=== PATIENT | male | born 1930 | race Caucasian/White ===

== ENCOUNTER 2017-11-30 22:01 | Inpatient (IN) ==
[2017-12-01] MEDS ORDERED: methylPREDNISolone SOD SUC 125 MG/2 ML VIAL IV STA (03:05)
[2017-12-01] MEDS ORDERED: ALBUTEROL/IPRATROPIUM 3 ML NEB RESP TX STA (03:05)
[2017-12-01] MEDS ORDERED: methylPREDNISolone SOD SUC 125 MG/2 ML VIAL ONE (03:12)
[2017-12-01] MEDS ORDERED: ONDANSETRON 4 MG/2 ML VIAL IV PRN (05:05)
[2017-12-01] MEDS ORDERED: ALBUTEROL/IPRATROPIUM 3 ML NEB RESP TX PRN (05:10)
[2017-12-01] MEDS ORDERED: GLUCAGON 1 MG VIAL IM PRN (05:34)
[2017-12-01] MEDS ORDERED: DEXTROSE 50% 25 GM/50 ML VIAL IV PRN (05:34)
[2017-12-01] MEDS: INSULIN LISPRO 100 UNIT/ML SUBCUT SCH ×4 (07:52→22:05)
[2017-12-01 07:55] LABS: Basophils % 0.1 % (0.0-0.8); Hematocrit 46.2 VOL% (42.0-52.0); Hemoglobin 14.9 GM/DL (14.0-18.0); Immature Granulocytes % 0.3 %; Immature Granulocytes Absolute 0.03 #; Lymphocytes # 0.9 10*3/uL (1.4-4.0); Lymphocytes % 9.6 % (21.2-54.2); Mean Corpuscular HGB Conc 32.3 GM/DL (32-36); Mean Corpuscular Hemoglobin 31 PG (27-34); Mean Corpuscular Volume 95.7 FL (87-102); Mean Platelet Volume 11.1 FL (9.6-12.0); Monocytes # 0.1 10*3/uL (0.11-0.8); Monocytes % 0.9 % (1.7-12.7); Neutrophils # 8.2 10*3/uL (1.4-7.4); Neutrophils % 89.1 % (38.7-73.9); Platelet Count 155 T/CUMM (130-400); Red Blood Count 4.83 MC/CUMM (3.8-5.5); Red Cell Distribution Width 13.7 % (9.3-17.3); White Blood Count 9.2 T/CUMM (4-12)
[2017-12-01 08:15] LABS: Band Neutrophils 1 % (0-10); Lymphocytes 9 % (20-55); Segmented Neutrophils 89 % (50-85); Total Cells Counted 100
[2017-12-01 08:16] LABS: Hypochromasia 1+; Platelet Estimate Decreased
[2017-12-01 08:23] LABS: Albumin 2.7 G/DL (3.4-5.0); Bilirubin,Total 0.4 MG/DL (0.2-1.0); Calcium 8.5 MG/DL (8.5-10.1); Potassium 4.3 MMOL/L (3.5-5.1); Total Protein 7.4 G/DL (6.4-8.3)
[2017-12-01] MEDS: ENOXAPARIN 40 MG/0.4 ML SYRINGE SUBCUT SCH (09:13)
[2017-12-01] MEDS ORDERED: LIDOCAINE 2%/EPI 20 ML VIAL ONE (13:11)
[2017-12-01] MEDS ORDERED: SILVER NITRATE STICK 1 EACH TOP ONE (14:19)
[2017-12-01] MEDS ORDERED: SEVOFLURANE 1 UNIT/15 MINUTE INH ONE (14:40)
[2017-12-01] MEDS ORDERED: fentaNYL 100 MCG/2 ML VIAL ONE (14:40)
[2017-12-01] MEDS ORDERED: MIDAZOLAM 2 MG/2 ML VIAL ONE (14:40)
[2017-12-01] MEDS ORDERED: PROPOFOL 200 MG/20 ML VIAL IV ONE (14:40)
[2017-12-02 07:08] LABS: Basophils % 0.1 % (0.0-0.8); Hematocrit 42.6 VOL% (42.0-52.0); Hemoglobin 14.4 GM/DL (14.0-18.0); Immature Granulocytes % 0.4 %; Immature Granulocytes Absolute 0.07 #; Lymphocytes # 2.6 10*3/uL (1.4-4.0); Lymphocytes % 16.4 % (21.2-54.2); Mean Corpuscular HGB Conc 33.8 GM/DL (32-36); Mean Corpuscular Hemoglobin 32 PG (27-34); Mean Corpuscular Volume 94.2 FL (87-102); Mean Platelet Volume 11.7 FL (9.6-12.0); Monocytes # 1.1 10*3/uL (0.11-0.8); Monocytes % 6.8 % (1.7-12.7); Neutrophils # 12.1 10*3/uL (1.4-7.4); Neutrophils % 76.3 % (38.7-73.9); Platelet Count 180 T/CUMM (130-400); Red Blood Count 4.52 MC/CUMM (3.8-5.5); Red Cell Distribution Width 13.9 % (9.3-17.3); White Blood Count 15.9 T/CUMM (4-12)
[2017-12-02] MEDS: ENOXAPARIN 40 MG/0.4 ML SYRINGE SUBCUT SCH (08:51)
[2017-12-02] MEDS: INSULIN LISPRO 100 UNIT/ML SUBCUT SCH ×3 (08:51→16:35)
[2017-12-02 12:09] VITALS: BP 140/77
== END 2017-12-02 17:45 | disposition home or self-care (01) | DRG 206 ==
LOC: N.ED 22:01 → N.EDINP 12-01 05:05 → N.5E 12-01 05:52
PROVIDERS: ADMIT Internal Medicine Nephrology; ATTEND Internal Medicine Nephrology

== ENCOUNTER 2017-12-05 11:30 | Inpatient (IN) ==
[2017-12-05 12:40] LABS: Basophils % 0.1 % (0.0-0.8); Hemoglobin 14.7 GM/DL (14.0-18.0); Immature Granulocytes % 0.6 %; Immature Granulocytes Absolute 0.14 #; Lymphocytes # 1.3 10*3/uL (1.4-4.0); Lymphocytes % 5.9 % (21.2-54.2); Mean Corpuscular HGB Conc 32.7 GM/DL (32-36); Mean Corpuscular Hemoglobin 31 PG (27-34); Mean Corpuscular Volume 95.5 FL (87-102); Mean Platelet Volume 10.9 FL (9.6-12.0); Monocytes # 1.1 10*3/uL (0.11-0.8); Monocytes % 5.1 % (1.7-12.7); Neutrophils # 19.4 10*3/uL (1.4-7.4); Neutrophils % 88.3 % (38.7-73.9); Platelet Count 204 T/CUMM (130-400); Red Blood Count 4.71 MC/CUMM (3.8-5.5); Red Cell Distribution Width 13.7 % (9.3-17.3); White Blood Count 21.9 T/CUMM (4-12)
[2017-12-05] MEDS ORDERED: LEVOFLOXACIN INJ 750 MG in PREMIX 1 EACH IV STA (12:43)
[2017-12-05 12:48] LABS: PT Patient Result 10.9 SECS; Partial Thromboplastin Time 26.1 SECS (0-40)
[2017-12-05 13:07] LABS: Band Neutrophils 3 % (0-10); Lymphocytes 15 % (20-55); Segmented Neutrophils 81 % (50-85); Total Cells Counted 100
[2017-12-05 13:08] LABS: Platelet Estimate Normal
[2017-12-05 13:18] LABS: Albumin 2.6 G/DL (3.4-5.0); Bilirubin,Total 0.6 MG/DL (0.2-1.0); Calcium 8.3 MG/DL (8.5-10.1); Osmolality,Calculated 299.8 MOS/KG (273-304); Potassium 4.3 MMOL/L (3.5-5.1); Total Protein 7.2 G/DL (6.4-8.3)
[2017-12-05] MEDS ORDERED: diphenhydrAMINE CAP 25 MG CAPSULE PO PRN (15:20)
[2017-12-05] MEDS ORDERED: DOCUSATE SODIUM 100 MG CAPSULE PO PRN (15:20)
[2017-12-05] MEDS ORDERED: guaiFENesin/DM ER 600-30 MG TABLET PO PRN (15:20)
[2017-12-05] MEDS ORDERED: ONDANSETRON 4 MG/2 ML VIAL IV PRN (15:20)
[2017-12-05] MEDS ORDERED: ACETAMINOPHEN 325 MG TABLET PO PRN ×2 (15:20)
[2017-12-05] MEDS: MORPHINE 10 MG/1 ML VIAL IV PRN ×2 (18:31→22:59)
[2017-12-05] MEDS: SODIUM CHLORIDE 0.9% 1,000 ML IV SCH (18:31)
[2017-12-05] MEDS: PANTOPRAZOLE 40 MG TABLET PO SCH (18:37)
[2017-12-05] MEDS: MUPIROCIN 2% OINT 22 GM TUBE TOP SCH (21:50)
[2017-12-05] MEDS: ENOXAPARIN 30 MG/0.3 ML SYRINGE SUBCUT SCH (21:50)
[2017-12-06] MEDS: CEFTAROLINE 400 MG in SODIUM CHLORIDE 0.9% 100 ML IV SCH ×3 (00:02→23:00)
[2017-12-06] MEDS: SODIUM CHLORIDE 0.9% 1,000 ML IV SCH (00:02)
[2017-12-06 05:39] LABS: Basophils % 0.1 % (0.0-0.8); Hematocrit 44.3 VOL% (42.0-52.0); Hemoglobin 14.7 GM/DL (14.0-18.0); Immature Granulocytes % 0.8 %; Immature Granulocytes Absolute 0.17 #; Lymphocytes # 1.4 10*3/uL (1.4-4.0); Lymphocytes % 6.6 % (21.2-54.2); Mean Corpuscular HGB Conc 33.2 GM/DL (32-36); Mean Corpuscular Hemoglobin 31 PG (27-34); Mean Corpuscular Volume 94.3 FL (87-102); Mean Platelet Volume 11.7 FL (9.6-12.0); Monocytes # 1.1 10*3/uL (0.11-0.8); Monocytes % 5.3 % (1.7-12.7); Neutrophils # 17.9 10*3/uL (1.4-7.4); Neutrophils % 87.2 % (38.7-73.9); Platelet Count 196 T/CUMM (130-400); Red Cell Distribution Width 13.8 % (9.3-17.3); White Blood Count 20.5 T/CUMM (4-12)
[2017-12-06 06:02] LABS: Calcium 8.2 MG/DL (8.5-10.1); Osmolality,Calculated 299.6 MOS/KG (273-304); Potassium 4.2 MMOL/L (3.5-5.1)
[2017-12-06 06:24] LABS: Band Neutrophils 1 % (0-10); Giant Platelets Few; Hypochromasia 1+; Lymphocytes 11 % (20-55); Platelet Estimate Adequate; Segmented Neutrophils 86 % (50-85); Total Cells Counted 100
[2017-12-06] MEDS: PANTOPRAZOLE 40 MG TABLET PO SCH (09:22)
[2017-12-06] MEDS: MUPIROCIN 2% OINT 22 GM TUBE TOP SCH ×3 (09:27→21:00)
[2017-12-06] MEDS ORDERED: PRASTERONE 50 MG PO SCH (10:30)
[2017-12-06] MEDS ORDERED: NON-FORMULARY MEDICATION (Mirabegron [Myrbetriq] 25 MG) PO SCH (10:30)
[2017-12-06] MEDS: DONEPEZIL 10 MG TABLET PO SCH (16:23)
[2017-12-06] MEDS: CITALOPRAM 20 MG TABLET PO SCH (16:24)
[2017-12-06] MEDS: LORATADINE 10 MG TABLET PO SCH (16:24)
[2017-12-06] MEDS: ANASTROZOLE 1 MG TABLET PO SCH (16:24)
[2017-12-06] MEDS: ASPIRIN 325 MG TABLET PO SCH (16:24)
[2017-12-06] MEDS: MEMANTINE 10 MG TABLET PO SCH (17:24)
[2017-12-06] MEDS: TAMSULOSIN 0.4 MG CAPSULE PO SCH (17:24)
[2017-12-06] MEDS: FLUTICASONE 50 MCG NASAL SPRAY 16 GM BOTTLE BOTH NARES SCH (17:24)
[2017-12-06] MEDS: amLODIPine 5 MG TABLET PO SCH (17:24)
[2017-12-06] MEDS: POLYETHYLENE GLYCOL POWDER 17 GM PACK PO SCH (17:24)
[2017-12-06] MEDS: ATENOLOL 50 MG TABLET PO SCH (17:25)
[2017-12-06] MEDS: FINASTERIDE 5 MG TABLET PO SCH (17:25)
[2017-12-06] MEDS: LISINOPRIL 20 MG TABLET PO SCH (17:25)
[2017-12-06] MEDS: PRAVASTATIN 40 MG TABLET PO SCH (17:25)
[2017-12-06] MEDS: ALLOPURINOL 100 MG TABLET PO SCH (17:25)
[2017-12-06] MEDS: ARFORMOTEROL 15 MCG/2 ML NEB RESP TX SCH (19:20)
[2017-12-06] MEDS: SODIUM CHLORIDE 0.45% 1,000 ML IV SCH ×2 (20:00→22:00)
[2017-12-07] MEDS: ESCITALOPRAM 10 MG TABLET PO SCH ×2 (00:22→21:32)
[2017-12-07] MEDS: ENOXAPARIN 30 MG/0.3 ML SYRINGE SUBCUT SCH (00:22)
[2017-12-07] MEDS: MEMANTINE 10 MG TABLET PO SCH ×3 (00:23→21:32)
[2017-12-07] MEDS: SODIUM CHLORIDE 0.9% 1,000 ML IV SCH (03:36)
[2017-12-07] MEDS ORDERED: MIDAZOLAM 2 MG/2 ML VIAL ONE (07:10)
[2017-12-07] MEDS: ARFORMOTEROL 15 MCG/2 ML NEB RESP TX SCH ×2 (07:26→19:55)
[2017-12-07] MEDS ORDERED: MIDAZOLAM 2 MG/2 ML VIAL IV ONE (07:30)
[2017-12-07] MEDS ORDERED: LIDOCAINE 2% 20 ML VIAL RESP TX ONE (07:30)
[2017-12-07] MEDS ORDERED: LIDOCAINE 1% 20 ML VIAL MISC INJ ONE (07:30)
[2017-12-07] MEDS: SODIUM CHLORIDE 0.45% 1,000 ML IV SCH ×3 (09:49→21:50)
[2017-12-07] MEDS: CEFTAROLINE 400 MG in SODIUM CHLORIDE 0.9% 100 ML IV SCH ×2 (11:00→22:30)
[2017-12-07] MEDS: FLUTICASONE 50 MCG NASAL SPRAY 16 GM BOTTLE BOTH NARES SCH (11:12)
[2017-12-07] MEDS: MUPIROCIN 2% OINT 22 GM TUBE TOP SCH ×3 (11:19→21:32)
[2017-12-07] MEDS: PANTOPRAZOLE 40 MG TABLET PO SCH (12:03)
[2017-12-07] MEDS: LORATADINE 10 MG TABLET PO SCH (12:03)
[2017-12-07] MEDS: ASPIRIN 325 MG TABLET PO SCH (12:03)
[2017-12-07] MEDS: ALLOPURINOL 100 MG TABLET PO SCH (12:03)
[2017-12-07] MEDS: CITALOPRAM 20 MG TABLET PO SCH (12:03)
[2017-12-07] MEDS: ATENOLOL 50 MG TABLET PO SCH (12:03)
[2017-12-07] MEDS: DONEPEZIL 10 MG TABLET PO SCH (12:03)
[2017-12-07] MEDS: POLYETHYLENE GLYCOL POWDER 17 GM PACK PO SCH (12:03)
[2017-12-07] MEDS: LISINOPRIL 20 MG TABLET PO SCH (12:03)
[2017-12-07] MEDS: ANASTROZOLE 1 MG TABLET PO SCH (12:03)
[2017-12-07] MEDS: TAMSULOSIN 0.4 MG CAPSULE PO SCH (12:03)
[2017-12-07] MEDS: FINASTERIDE 5 MG TABLET PO SCH (12:03)
[2017-12-07] MEDS: PRAVASTATIN 40 MG TABLET PO SCH (12:03)
[2017-12-07] MEDS: amLODIPine 5 MG TABLET PO SCH (12:04)
[2017-12-07] MEDS: ENOXAPARIN 40 MG/0.4 ML SYRINGE SUBCUT SCH (21:32)
[2017-12-07] MEDS: MORPHINE 10 MG/1 ML VIAL IV PRN (21:34)
[2017-12-08] MEDS: SODIUM CHLORIDE 0.45% 1,000 ML IV SCH ×2 (05:04→13:30)
[2017-12-08] MEDS: ARFORMOTEROL 15 MCG/2 ML NEB RESP TX SCH ×2 (07:08→19:22)
[2017-12-08 07:54] LABS: Basophils % 0.2 % (0.0-0.8); Eosinophils # 0.1 10*3/uL (0.0-0.87); Eosinophils % 0.7 % (0.00-10.9); Hematocrit 40.4 VOL% (42.0-52.0); Immature Granulocytes % 1.2 %; Immature Granulocytes Absolute 0.22 #; Lymphocytes # 1.5 10*3/uL (1.4-4.0); Lymphocytes % 8.7 % (21.2-54.2); Mean Corpuscular HGB Conc 32.2 GM/DL (32-36); Mean Corpuscular Hemoglobin 31 PG (27-34); Mean Corpuscular Volume 97.3 FL (87-102); Monocytes # 0.9 10*3/uL (0.11-0.8); Monocytes % 5.2 % (1.7-12.7); Neutrophils # 14.8 10*3/uL (1.4-7.4); Platelet Count 189 T/CUMM (130-400); Red Blood Count 4.15 MC/CUMM (3.8-5.5); Red Cell Distribution Width 13.8 % (9.3-17.3); White Blood Count 17.6 T/CUMM (4-12)
[2017-12-08 08:32] LABS: Magnesium 2.2 MG/DL (1.8-2.4); Osmolality,Calculated 297.8 MOS/KG (273-304); Potassium 3.8 MMOL/L (3.5-5.1)
[2017-12-08] MEDS: DONEPEZIL 10 MG TABLET PO SCH (09:32)
[2017-12-08] MEDS: LORATADINE 10 MG TABLET PO SCH (09:33)
[2017-12-08] MEDS: ANASTROZOLE 1 MG TABLET PO SCH (09:33)
[2017-12-08] MEDS: TAMSULOSIN 0.4 MG CAPSULE PO SCH (09:33)
[2017-12-08] MEDS: ASPIRIN 325 MG TABLET PO SCH (09:33)
[2017-12-08] MEDS: CITALOPRAM 20 MG TABLET PO SCH (09:33)
[2017-12-08] MEDS: MEMANTINE 10 MG TABLET PO SCH ×2 (09:34→20:31)
[2017-12-08] MEDS: LISINOPRIL 20 MG TABLET PO SCH (09:34)
[2017-12-08] MEDS: PRAVASTATIN 40 MG TABLET PO SCH (09:34)
[2017-12-08] MEDS: amLODIPine 5 MG TABLET PO SCH (09:34)
[2017-12-08] MEDS: ATENOLOL 50 MG TABLET PO SCH (09:35)
[2017-12-08] MEDS: FINASTERIDE 5 MG TABLET PO SCH (09:35)
[2017-12-08] MEDS: ALLOPURINOL 100 MG TABLET PO SCH (09:35)
[2017-12-08] MEDS: PANTOPRAZOLE 40 MG TABLET PO SCH (09:35)
[2017-12-08] MEDS: FLUTICASONE 50 MCG NASAL SPRAY 16 GM BOTTLE BOTH NARES SCH (09:36)
[2017-12-08] MEDS: MUPIROCIN 2% OINT 22 GM TUBE TOP SCH ×3 (09:36→20:31)
[2017-12-08] MEDS: CEFTAROLINE 400 MG in SODIUM CHLORIDE 0.9% 100 ML IV SCH ×2 (11:34→23:00)
[2017-12-08] MEDS: POLYETHYLENE GLYCOL POWDER 17 GM PACK PO SCH (12:06)
[2017-12-08] MEDS: ESCITALOPRAM 10 MG TABLET PO SCH (20:30)
[2017-12-08] MEDS: ENOXAPARIN 40 MG/0.4 ML SYRINGE SUBCUT SCH (20:31)
[2017-12-09] MEDS: SODIUM CHLORIDE 0.45% 1,000 ML IV SCH ×3 (00:05→17:03)
[2017-12-09] MEDS: MORPHINE 10 MG/1 ML VIAL IV PRN (01:17)
[2017-12-09] MEDS: ARFORMOTEROL 15 MCG/2 ML NEB RESP TX SCH ×2 (07:16→19:57)
[2017-12-09] MEDS: DONEPEZIL 10 MG TABLET PO SCH (09:17)
[2017-12-09] MEDS: ASPIRIN 325 MG TABLET PO SCH (09:17)
[2017-12-09] MEDS: ANASTROZOLE 1 MG TABLET PO SCH (09:17)
[2017-12-09] MEDS: CITALOPRAM 20 MG TABLET PO SCH (09:18)
[2017-12-09] MEDS: LORATADINE 10 MG TABLET PO SCH (09:18)
[2017-12-09] MEDS: FLUTICASONE 50 MCG NASAL SPRAY 16 GM BOTTLE BOTH NARES SCH (09:18)
[2017-12-09] MEDS: TAMSULOSIN 0.4 MG CAPSULE PO SCH (09:18)
[2017-12-09] MEDS: MEMANTINE 10 MG TABLET PO SCH ×2 (09:19→21:34)
[2017-12-09] MEDS: MUPIROCIN 2% OINT 22 GM TUBE TOP SCH ×3 (09:19→21:35)
[2017-12-09] MEDS: amLODIPine 5 MG TABLET PO SCH (09:19)
[2017-12-09] MEDS: PRAVASTATIN 40 MG TABLET PO SCH (09:20)
[2017-12-09] MEDS: ATENOLOL 50 MG TABLET PO SCH (09:20)
[2017-12-09] MEDS: LISINOPRIL 20 MG TABLET PO SCH (09:20)
[2017-12-09] MEDS: ALLOPURINOL 100 MG TABLET PO SCH (09:20)
[2017-12-09] MEDS: FINASTERIDE 5 MG TABLET PO SCH (09:20)
[2017-12-09] MEDS: PANTOPRAZOLE 40 MG TABLET PO SCH (09:20)
[2017-12-09] MEDS ORDERED: LORazepam 0.5 MG TABLET PO PRN (10:01)
[2017-12-09] MEDS: CEFTAROLINE 400 MG in SODIUM CHLORIDE 0.9% 100 ML IV SCH ×2 (10:48→22:52)
[2017-12-09] MEDS ORDERED: LORazepam 1 MG TABLET PO PRN (11:28)
[2017-12-09] MEDS: POLYETHYLENE GLYCOL POWDER 17 GM PACK PO SCH (12:13)
[2017-12-09] MEDS: ESCITALOPRAM 10 MG TABLET PO SCH (21:34)
[2017-12-09] MEDS: ENOXAPARIN 40 MG/0.4 ML SYRINGE SUBCUT SCH (21:34)
[2017-12-10] MEDS: SODIUM CHLORIDE 0.45% 1,000 ML IV SCH ×2 (01:35→10:33)
[2017-12-10 06:20] LABS: Basophils % 0.2 % (0.0-0.8); Eosinophils # 0.1 10*3/uL (0.0-0.87); Eosinophils % 0.8 % (0.00-10.9); Hematocrit 39.2 VOL% (42.0-52.0); Hemoglobin 12.9 GM/DL (14.0-18.0); Immature Granulocytes % 0.7 %; Immature Granulocytes Absolute 0.12 #; Lymphocytes # 1.3 10*3/uL (1.4-4.0); Lymphocytes % 7.5 % (21.2-54.2); Mean Corpuscular HGB Conc 32.9 GM/DL (32-36); Mean Corpuscular Hemoglobin 31 PG (27-34); Mean Corpuscular Volume 94.5 FL (87-102); Mean Platelet Volume 11.3 FL (9.6-12.0); Monocytes # 0.9 10*3/uL (0.11-0.8); Monocytes % 5.2 % (1.7-12.7); Neutrophils # 14.5 10*3/uL (1.4-7.4); Neutrophils % 85.6 % (38.7-73.9); Platelet Count 203 T/CUMM (130-400); Red Blood Count 4.15 MC/CUMM (3.8-5.5); Red Cell Distribution Width 13.5 % (9.3-17.3); White Blood Count 16.9 T/CUMM (4-12)
[2017-12-10 06:54] LABS: Calcium 7.7 MG/DL (8.5-10.1); Magnesium 2.1 MG/DL (1.8-2.4); Osmolality,Calculated 284.7 MOS/KG (273-304); Potassium 3.9 MMOL/L (3.5-5.1)
[2017-12-10] MEDS: ARFORMOTEROL 15 MCG/2 ML NEB RESP TX SCH ×2 (07:25→20:05)
[2017-12-10] MEDS: TAMSULOSIN 0.4 MG CAPSULE PO SCH (08:40)
[2017-12-10] MEDS: amLODIPine 5 MG TABLET PO SCH (08:40)
[2017-12-10] MEDS: MUPIROCIN 2% OINT 22 GM TUBE TOP SCH ×3 (08:40→21:35)
[2017-12-10] MEDS: CITALOPRAM 20 MG TABLET PO SCH (08:40)
[2017-12-10] MEDS: FLUTICASONE 50 MCG NASAL SPRAY 16 GM BOTTLE BOTH NARES SCH (08:40)
[2017-12-10] MEDS: ANASTROZOLE 1 MG TABLET PO SCH (08:40)
[2017-12-10] MEDS: POLYETHYLENE GLYCOL POWDER 17 GM PACK PO SCH (08:40)
[2017-12-10] MEDS: DONEPEZIL 10 MG TABLET PO SCH (08:40)
[2017-12-10] MEDS: LORATADINE 10 MG TABLET PO SCH (08:40)
[2017-12-10] MEDS: ASPIRIN 325 MG TABLET PO SCH (08:40)
[2017-12-10] MEDS: MEMANTINE 10 MG TABLET PO SCH ×2 (08:40→21:36)
[2017-12-10] MEDS: PANTOPRAZOLE 40 MG TABLET PO SCH (08:41)
[2017-12-10] MEDS: PRAVASTATIN 40 MG TABLET PO SCH (08:41)
[2017-12-10] MEDS: ALLOPURINOL 100 MG TABLET PO SCH (08:41)
[2017-12-10] MEDS: ATENOLOL 50 MG TABLET PO SCH (08:41)
[2017-12-10] MEDS: FINASTERIDE 5 MG TABLET PO SCH (08:41)
[2017-12-10] MEDS: LISINOPRIL 20 MG TABLET PO SCH (08:41)
[2017-12-10] MEDS ORDERED: FUROSEMIDE 40 MG/4 ML VIAL IV ONE (10:04)
[2017-12-10] MEDS: CEFTAROLINE 400 MG in SODIUM CHLORIDE 0.9% 100 ML IV SCH ×2 (11:22→22:57)
[2017-12-10] MEDS: FLUCONAZOLE 100 MG TABLET PO SCH (13:01)
[2017-12-10] MEDS: ESCITALOPRAM 10 MG TABLET PO SCH (21:35)
[2017-12-10] MEDS: ENOXAPARIN 40 MG/0.4 ML SYRINGE SUBCUT SCH (21:36)
[2017-12-11 05:24] LABS: Basophils # 0.1 10*3/uL (0.0-0.2); Basophils % 0.3 % (0.0-0.8); Eosinophils # 0.2 10*3/uL (0.0-0.87); Eosinophils % 0.9 % (0.00-10.9); Hematocrit 39.4 VOL% (42.0-52.0); Hemoglobin 12.8 GM/DL (14.0-18.0); Immature Granulocytes % 0.9 %; Immature Granulocytes Absolute 0.15 #; Lymphocytes # 1.1 10*3/uL (1.4-4.0); Lymphocytes % 6.5 % (21.2-54.2); Mean Corpuscular HGB Conc 32.5 GM/DL (32-36); Mean Corpuscular Hemoglobin 31 PG (27-34); Mean Corpuscular Volume 94.9 FL (87-102); Mean Platelet Volume 11.8 FL (9.6-12.0); Monocytes # 0.8 10*3/uL (0.11-0.8); Monocytes % 4.6 % (1.7-12.7); Neutrophils # 15.2 10*3/uL (1.4-7.4); Neutrophils % 86.8 % (38.7-73.9); Platelet Count 225 T/CUMM (130-400); Red Blood Count 4.15 MC/CUMM (3.8-5.5); Red Cell Distribution Width 13.4 % (9.3-17.3); White Blood Count 17.5 T/CUMM (4-12)
[2017-12-11 05:59] LABS: Calcium 8.4 MG/DL (8.5-10.1); Magnesium 2.3 MG/DL (1.8-2.4); Potassium 3.7 MMOL/L (3.5-5.1)
[2017-12-11] MEDS: ARFORMOTEROL 15 MCG/2 ML NEB RESP TX SCH (07:48)
[2017-12-11] MEDS ORDERED: VORICONAZOLE 200 MG TABLET PO SCH (09:30)
[2017-12-11] MEDS: POLYETHYLENE GLYCOL POWDER 17 GM PACK PO SCH (10:09)
[2017-12-11] MEDS: FLUTICASONE 50 MCG NASAL SPRAY 16 GM BOTTLE BOTH NARES SCH (10:09)
[2017-12-11] MEDS: ATENOLOL 50 MG TABLET PO SCH (10:10)
[2017-12-11] MEDS: MEMANTINE 10 MG TABLET PO SCH (10:10)
[2017-12-11] MEDS: ASPIRIN 325 MG TABLET PO SCH (10:10)
[2017-12-11] MEDS: MUPIROCIN 2% OINT 22 GM TUBE TOP SCH (10:10)
[2017-12-11] MEDS: ALLOPURINOL 100 MG TABLET PO SCH (10:10)
[2017-12-11] MEDS: TAMSULOSIN 0.4 MG CAPSULE PO SCH (10:10)
[2017-12-11] MEDS: PRAVASTATIN 40 MG TABLET PO SCH (10:10)
[2017-12-11] MEDS: CITALOPRAM 20 MG TABLET PO SCH (10:10)
[2017-12-11] MEDS: LORATADINE 10 MG TABLET PO SCH (10:10)
[2017-12-11] MEDS: LISINOPRIL 20 MG TABLET PO SCH (10:10)
[2017-12-11] MEDS: amLODIPine 5 MG TABLET PO SCH (10:11)
[2017-12-11] MEDS: FINASTERIDE 5 MG TABLET PO SCH (10:11)
[2017-12-11] MEDS: DONEPEZIL 10 MG TABLET PO SCH (10:11)
[2017-12-11] MEDS: ANASTROZOLE 1 MG TABLET PO SCH (10:11)
[2017-12-11] MEDS: PANTOPRAZOLE 40 MG TABLET PO SCH (10:11)
[2017-12-11 11:00] VITALS: BP 147/67
[2017-12-11] MEDS: CEFTAROLINE 400 MG in SODIUM CHLORIDE 0.9% 100 ML IV SCH (12:14)
[2017-12-11] MEDS: FLUCONAZOLE 100 MG TABLET PO SCH (12:15)
[2017-12-11] MEDS ORDERED: ENOXAPARIN 30 MG/0.3 ML SYRINGE SUBCUT SCH (21:00)
[2017-12-13] MEDS ORDERED: TESTOSTERONE CYPIONATE 200 MG/ML VIAL IM SCH (09:00)
== END 2017-12-11 13:30 | disposition swing bed (61) | DRG 200 ==
LOC: EDUNIT# → EDBD → N.ED 11:30 → N.EDINP 12:52 → SUATTDRO 12:52 → N.3E 17:09
PROVIDERS: ADMIT Internal Medicine; ATTEND Internal Medicine

== ENCOUNTER 2018-01-05 12:59 | Inpatient (IN) ==
[2018-01-05] MEDS ORDERED: ONDANSETRON 4 MG/2 ML VIAL IV PRN (16:00)
[2018-01-05] MEDS ORDERED: DEXT 5% NACL 0.45% KCL 20 MEQ 20 MEQ/1,000 ML BAG IV SCH (16:00)
[2018-01-05 17:04] LABS: Basophils # 0.1 10*3/uL (0.0-0.2); Basophils % 0.6 % (0.0-0.8); Eosinophils # 0.3 10*3/uL (0.0-0.87); Eosinophils % 2.2 % (0.00-10.9); Hematocrit 29.2 VOL% (42.0-52.0); Immature Granulocytes Absolute 0.12 #; Lymphocytes # 1.2 10*3/uL (1.4-4.0); Lymphocytes % 10.3 % (21.2-54.2); Mean Corpuscular HGB Conc 30.8 GM/DL (32-36); Mean Corpuscular Hemoglobin 30 PG (27-34); Mean Platelet Volume 10.8 FL (9.6-12.0); Monocytes # 0.6 10*3/uL (0.11-0.8); NRBC # 0.05 10*3/uL; Neutrophils # 9.6 10*3/uL (1.4-7.4); Neutrophils % 80.9 % (38.7-73.9); Platelet Count 235 T/CUMM (130-400); Red Blood Count 2.98 MC/CUMM (3.8-5.5); Red Cell Distribution Width 14.6 % (9.3-17.3); White Blood Count 11.9 T/CUMM (4-12)
[2018-01-05 17:24] LABS: Alanine Aminotransferase 179 U/L (16-61); Albumin 1.8 G/DL (3.4-5.0); Alkaline Phosphatase 127 U/L (45-117); Aspartate Amino Transferase 335 U/L (0-37); Bilirubin,Total < 0.39 MG/DL (0.2-1.0); Blood Urea Nitrogen 44 MG/DL (7-18); Calcium 7.9 MG/DL (8.5-10.1); Glucose 121 MG/DL (74-106); Osmolality,Calculated 297.8 MOS/KG (273-304); Potassium 4.5 MMOL/L (3.5-5.1); Sodium 144 MMOL/L (136-145); Total Protein 6.6 G/DL (6.4-8.3)
[2018-01-05] MEDS ORDERED: VANCOMYCIN INJ 1,250 MG in SODIUM CHLORIDE 0.9% 250 ML IV PRN (17:33)
[2018-01-05] MEDS ORDERED: VANCOMYCIN INJ 1,250 MG in SODIUM CHLORIDE 0.9% 250 ML IV ONE (18:00)
[2018-01-05] MEDS: LEVOFLOXACIN INJ 500 MG in PREMIX 1 EACH IV SCH (18:21)
[2018-01-05] MEDS: SODIUM CHLORIDE 0.9% 1,000 ML IV SCH (18:22)
[2018-01-05 19:02] LABS: Apearance,Urine CLEAR (Clear); Bacteria,Urine Occasional /HPF (Few); Bilirubin,Urine Negative (Negative); Blood, Urine Moderate mg/dL (Negative); Glucose,Urine (UA) Negative (Negative); Hyaline Casts,Urine 1 /LPF (0-3); Ketones,Urine Negative (Negative); Mucus,Urine Occasional /LPF (Occasional); Nitrite,Urine Negative (Negative); Protein,Urine 100 MG/DL; RBC,Urine 6 /HPF (0-4); Urine Color Yellow (Yellow); Urine Urobilinogen < 2.0 EU/DL (0.2-1.0); WBC,Urine <1 /HPF (0-6)
[2018-01-05] MEDS ORDERED: VORICONAZOLE IV SCH (20:00)
[2018-01-05] MEDS ORDERED: SODIUM CHLORIDE 0.9% IV SCH (20:00)
[2018-01-05] MEDS: ALBUTEROL/IPRATROPIUM 3 ML NEB RESP TX SCH ×2 (20:35→23:33)
[2018-01-05] MEDS: ARFORMOTEROL 15 MCG/2 ML NEB RESP TX SCH (20:35)
[2018-01-05] MEDS: ENOXAPARIN 30 MG/0.3 ML SYRINGE SUBCUT SCH (20:49)
[2018-01-05] MEDS: VORICONAZOLE INJ 400 MG in SODIUM CHLORIDE 0.9% 100 ML IV SCH (20:49)
[2018-01-05] MEDS: MUPIROCIN 2% OINT 22 GM TUBE TOP SCH (20:49)
[2018-01-05] MEDS: MEMANTINE 10 MG TABLET PO SCH (20:49)
[2018-01-06] MEDS: ALBUTEROL/IPRATROPIUM 3 ML NEB RESP TX SCH ×6 (03:04→23:57)
[2018-01-06 05:40] LABS: Basophils % 0.4 % (0.0-0.8); Eosinophils % 0.7 % (0.00-10.9); Hematocrit 27.5 VOL% (42.0-52.0); Hemoglobin 8.9 GM/DL (14.0-18.0); Immature Granulocytes % 1.1 %; Lymphocytes # 1.4 10*3/uL (1.4-4.0); Lymphocytes % 12.5 % (21.2-54.2); Mean Corpuscular HGB Conc 32.4 GM/DL (32-36); Mean Corpuscular Hemoglobin 31 PG (27-34); Mean Corpuscular Volume 94.8 FL (87-102); Monocytes % 5.6 % (1.7-12.7); Neutrophils # 9.1 10*3/uL (1.4-7.4); Neutrophils % 79.7 % (38.7-73.9); Platelet Count 227 T/CUMM (130-400); Red Cell Distribution Width 14.6 % (9.3-17.3); White Blood Count 11.4 T/CUMM (4-12)
[2018-01-06 05:41] LABS: Basophils # 0.1 10*3/uL (0.0-0.2); Eosinophils # 0.1 10*3/uL (0.0-0.87); Immature Granulocytes Absolute 0.12 #; Monocytes # 0.6 10*3/uL (0.11-0.8); NRBC # 0.06 10*3/uL
[2018-01-06 06:16] LABS: Calcium 7.8 MG/DL (8.5-10.1); Osmolality,Calculated 302.4 MOS/KG (273-304); Potassium 4.2 MMOL/L (3.5-5.1)
[2018-01-06] MEDS: ARFORMOTEROL 15 MCG/2 ML NEB RESP TX SCH ×2 (07:56→20:49)
[2018-01-06] MEDS ORDERED: NON-FORMULARY MEDICATION (Mirabegron [Myrbetriq] 50 MG) PO SCH (09:00)
[2018-01-06] MEDS: VORICONAZOLE INJ 400 MG in SODIUM CHLORIDE 0.9% 100 ML IV SCH ×2 (09:10→20:21)
[2018-01-06] MEDS: DONEPEZIL 10 MG TABLET PO SCH (09:11)
[2018-01-06] MEDS: ALLOPURINOL 100 MG TABLET PO SCH (09:11)
[2018-01-06] MEDS: LORATADINE 10 MG TABLET PO SCH (09:11)
[2018-01-06] MEDS: ASPIRIN 325 MG TABLET PO SCH (09:11)
[2018-01-06] MEDS: ATENOLOL 50 MG TABLET PO SCH (09:12)
[2018-01-06] MEDS: TAMSULOSIN 0.4 MG CAPSULE PO SCH (09:12)
[2018-01-06] MEDS: FINASTERIDE 5 MG TABLET PO SCH (09:12)
[2018-01-06] MEDS: MEMANTINE 10 MG TABLET PO SCH ×2 (09:15→21:43)
[2018-01-06] MEDS: FLUTICASONE 50 MCG NASAL SPRAY 16 GM BOTTLE BOTH NARES SCH (09:16)
[2018-01-06] MEDS: MUPIROCIN 2% OINT 22 GM TUBE TOP SCH ×2 (09:16→21:42)
[2018-01-06] MEDS: MAGNESIUM OXIDE 400 MG TABLET PO SCH (09:16)
[2018-01-06] MEDS: SODIUM CHLORIDE 0.9% 1,000 ML IV SCH (12:10)
[2018-01-06] MEDS: POLYETHYLENE GLYCOL POWDER 17 GM PACK PO SCH (12:10)
[2018-01-06 15:27] LABS: ABG Base Excess 2.7 MMOL/L (-2.5-2.5); ABG HCO3 26.3 MMOL/L (20-26); ABG Oxygen Saturation 69.5 % (95-100); ABG PCO2 43.5 MM HG (35-48); ABG PH 7.411 (7.35-7.45); ABG TCO2 25.3 MMOL/L (23-27)
[2018-01-06] MEDS ORDERED: FUROSEMIDE 40 MG/4 ML VIAL IV ONE (15:27)
[2018-01-06 15:48] LABS: ABG PO2 39.8 MM HG (80-95)
[2018-01-06] MEDS: methylPREDNISolone SOD SUC 40 MG/1 ML VIAL IV SCH ×2 (15:51→21:42)
[2018-01-06] MEDS: LEVOFLOXACIN INJ 500 MG in PREMIX 1 EACH IV SCH (16:02)
[2018-01-06] MEDS ORDERED: ACETAMINOPHEN 325 MG TABLET PO PRN (17:21)
[2018-01-06] MEDS: MORPHINE 2 MG/1 ML SYRINGE IV PRN ×2 (17:59→19:58)
[2018-01-06] MEDS ORDERED: VANCOMYCIN INJ 1,250 MG in SODIUM CHLORIDE 0.9% 250 ML IV ONE (21:00)
[2018-01-06] MEDS: ENOXAPARIN 30 MG/0.3 ML SYRINGE SUBCUT SCH (21:43)
[2018-01-07] MEDS: methylPREDNISolone SOD SUC 40 MG/1 ML VIAL IV SCH ×4 (03:15→20:59)
[2018-01-07] MEDS: ALBUTEROL/IPRATROPIUM 3 ML NEB RESP TX SCH ×4 (03:57→14:00)
[2018-01-07 05:03] LABS: Basophils % 0.2 % (0.0-0.8); Hematocrit 31.3 VOL% (42.0-52.0); Hemoglobin 9.9 GM/DL (14.0-18.0); Immature Granulocytes % 0.9 %; Immature Granulocytes Absolute 0.11 #; Lymphocytes # 1.1 10*3/uL (1.4-4.0); Lymphocytes % 9.3 % (21.2-54.2); Mean Corpuscular HGB Conc 31.6 GM/DL (32-36); Mean Corpuscular Hemoglobin 31 PG (27-34); Mean Corpuscular Volume 97.5 FL (87-102); Mean Platelet Volume 11.3 FL (9.6-12.0); Monocytes # 0.2 10*3/uL (0.11-0.8); Monocytes % 1.8 % (1.7-12.7); Neutrophils # 10.6 10*3/uL (1.4-7.4); Neutrophils % 87.8 % (38.7-73.9); Platelet Count 204 T/CUMM (130-400); Red Blood Count 3.21 MC/CUMM (3.8-5.5); Red Cell Distribution Width 14.5 % (9.3-17.3)
[2018-01-07 05:27] LABS: Calcium 8.2 MG/DL (8.5-10.1); Osmolality,Calculated 302.6 MOS/KG (273-304); Potassium 4.9 MMOL/L (3.5-5.1)
[2018-01-07] MEDS: ARFORMOTEROL 15 MCG/2 ML NEB RESP TX SCH ×2 (07:15→19:42)
[2018-01-07] MEDS ORDERED: FUROSEMIDE 40 MG/4 ML VIAL IV ONE (07:47)
[2018-01-07] MEDS ORDERED: FUROSEMIDE 100 MG/10 ML VIAL ONE (08:53)
[2018-01-07] MEDS: MUPIROCIN 2% OINT 22 GM TUBE TOP SCH ×2 (09:30→21:00)
[2018-01-07] MEDS: DONEPEZIL 10 MG TABLET PO SCH (09:30)
[2018-01-07] MEDS: ASPIRIN 325 MG TABLET PO SCH (09:30)
[2018-01-07] MEDS: FINASTERIDE 5 MG TABLET PO SCH (09:31)
[2018-01-07] MEDS: MEMANTINE 10 MG TABLET PO SCH ×2 (09:32→21:00)
[2018-01-07] MEDS: TAMSULOSIN 0.4 MG CAPSULE PO SCH (09:32)
[2018-01-07] MEDS: MAGNESIUM OXIDE 400 MG TABLET PO SCH (09:32)
[2018-01-07] MEDS: LORATADINE 10 MG TABLET PO SCH (09:32)
[2018-01-07] MEDS: FLUTICASONE 50 MCG NASAL SPRAY 16 GM BOTTLE BOTH NARES SCH (09:33)
[2018-01-07] MEDS: ATENOLOL 50 MG TABLET PO SCH (09:33)
[2018-01-07] MEDS: ALLOPURINOL 100 MG TABLET PO SCH (09:33)
[2018-01-07] MEDS: POLYETHYLENE GLYCOL POWDER 17 GM PACK PO SCH (12:08)
[2018-01-07] MEDS: VORICONAZOLE 200 MG TABLET PO SCH ×2 (12:08→20:59)
[2018-01-07] MEDS ORDERED: SKIN HEALING OINT (AQUAPHOR) 50 GM TUBE TOP PRN (14:10)
[2018-01-07] MEDS ORDERED: ZINC OXIDE PASTE 113 GM TUBE TOP PRN (14:10)
[2018-01-07] MEDS: LEVOFLOXACIN INJ 500 MG in PREMIX 1 EACH IV SCH (16:34)
[2018-01-07] MEDS: ENOXAPARIN 30 MG/0.3 ML SYRINGE SUBCUT SCH (20:59)
[2018-01-07] MEDS: LORazepam 1 MG TABLET PO PRN (21:00)
[2018-01-07] MEDS ORDERED: VANCOMYCIN INJ 1,250 MG in SODIUM CHLORIDE 0.9% 250 ML IV ONE (23:30)
[2018-01-08] MEDS: methylPREDNISolone SOD SUC 40 MG/1 ML VIAL IV SCH ×4 (03:57→20:39)
[2018-01-08 05:12] LABS: Basophils % 0.2 % (0.0-0.8); Hematocrit 32.3 VOL% (42.0-52.0); Hemoglobin 10.2 GM/DL (14.0-18.0); Immature Granulocytes % 1.8 %; Immature Granulocytes Absolute 0.36 #; Lymphocytes # 1.5 10*3/uL (1.4-4.0); Lymphocytes % 7.7 % (21.2-54.2); Mean Corpuscular HGB Conc 31.6 GM/DL (32-36); Mean Corpuscular Hemoglobin 31 PG (27-34); Mean Platelet Volume 11.2 FL (9.6-12.0); Monocytes # 0.6 10*3/uL (0.11-0.8); Monocytes % 3.1 % (1.7-12.7); NRBC # 0.28 10*3/uL; Neutrophils # 17.4 10*3/uL (1.4-7.4); Neutrophils % 87.2 % (38.7-73.9); Platelet Count 193 T/CUMM (130-400); Red Blood Count 3.33 MC/CUMM (3.8-5.5); Red Cell Distribution Width 14.7 % (9.3-17.3)
[2018-01-08 05:45] LABS: Calcium 8.3 MG/DL (8.5-10.1); Osmolality,Calculated 307.6 MOS/KG (273-304); Potassium 4.8 MMOL/L (3.5-5.1)
[2018-01-08] MEDS: ARFORMOTEROL 15 MCG/2 ML NEB RESP TX SCH ×2 (07:01→19:28)
[2018-01-08] MEDS: VORICONAZOLE 200 MG TABLET PO SCH ×2 (08:47→20:39)
[2018-01-08] MEDS: FINASTERIDE 5 MG TABLET PO SCH (08:47)
[2018-01-08] MEDS: MAGNESIUM OXIDE 400 MG TABLET PO SCH (08:47)
[2018-01-08] MEDS: MEMANTINE 10 MG TABLET PO SCH ×2 (08:48→20:39)
[2018-01-08] MEDS: FLUTICASONE 50 MCG NASAL SPRAY 16 GM BOTTLE BOTH NARES SCH (08:48)
[2018-01-08] MEDS: ASPIRIN 325 MG TABLET PO SCH (08:48)
[2018-01-08] MEDS: DONEPEZIL 10 MG TABLET PO SCH (08:48)
[2018-01-08] MEDS: LORATADINE 10 MG TABLET PO SCH (08:48)
[2018-01-08] MEDS: TAMSULOSIN 0.4 MG CAPSULE PO SCH (08:48)
[2018-01-08] MEDS: ALLOPURINOL 100 MG TABLET PO SCH (08:48)
[2018-01-08] MEDS: MUPIROCIN 2% OINT 22 GM TUBE TOP SCH ×2 (08:48→20:39)
[2018-01-08] MEDS ORDERED: Mirabegron [Myrbetriq] 50 MG PO SCH (09:00)
[2018-01-08] MEDS: ATENOLOL 50 MG TABLET PO SCH (09:06)
[2018-01-08] MEDS: LORazepam 1 MG TABLET PO PRN (09:06)
[2018-01-08] MEDS: POLYETHYLENE GLYCOL POWDER 17 GM PACK PO SCH (12:14)
[2018-01-08] MEDS: MORPHINE 2 MG/1 ML SYRINGE IV PRN (15:30)
[2018-01-08] MEDS: LEVOFLOXACIN INJ 500 MG in PREMIX 1 EACH IV SCH (16:27)
[2018-01-08] MEDS: ENOXAPARIN 30 MG/0.3 ML SYRINGE SUBCUT SCH (20:39)
[2018-01-09] MEDS: methylPREDNISolone SOD SUC 40 MG/1 ML VIAL IV SCH ×4 (04:30→20:41)
[2018-01-09 04:57] LABS: Basophils % 0.1 % (0.0-0.8); Hematocrit 31.9 VOL% (42.0-52.0); Hemoglobin 10.1 GM/DL (14.0-18.0); Immature Granulocytes % 1.5 %; Immature Granulocytes Absolute 0.24 #; Lymphocytes % 6.3 % (21.2-54.2); Mean Corpuscular HGB Conc 31.7 GM/DL (32-36); Mean Corpuscular Hemoglobin 31 PG (27-34); Mean Corpuscular Volume 96.7 FL (87-102); Mean Platelet Volume 11.2 FL (9.6-12.0); Monocytes # 0.4 10*3/uL (0.11-0.8); Monocytes % 2.7 % (1.7-12.7); NRBC # 0.19 10*3/uL; Neutrophils # 14.4 10*3/uL (1.4-7.4); Neutrophils % 89.4 % (38.7-73.9); Platelet Count 150 T/CUMM (130-400); White Blood Count 16.1 T/CUMM (4-12)
[2018-01-09 05:24] LABS: Calcium 8.6 MG/DL (8.5-10.1); Osmolality,Calculated 319.4 MOS/KG (273-304); Potassium 5.6 MMOL/L (3.5-5.1)
[2018-01-09] MEDS: ARFORMOTEROL 15 MCG/2 ML NEB RESP TX SCH ×2 (07:35→19:34)
[2018-01-09] MEDS: TAMSULOSIN 0.4 MG CAPSULE PO SCH (09:02)
[2018-01-09] MEDS: ASPIRIN 325 MG TABLET PO SCH (09:03)
[2018-01-09] MEDS: LORATADINE 10 MG TABLET PO SCH (09:03)
[2018-01-09] MEDS: ATENOLOL 50 MG TABLET PO SCH (09:03)
[2018-01-09] MEDS: VORICONAZOLE 200 MG TABLET PO SCH ×2 (09:03→20:41)
[2018-01-09] MEDS: MEMANTINE 10 MG TABLET PO SCH ×2 (09:03→20:40)
[2018-01-09] MEDS: FLUTICASONE 50 MCG NASAL SPRAY 16 GM BOTTLE BOTH NARES SCH (09:04)
[2018-01-09] MEDS: ALLOPURINOL 100 MG TABLET PO SCH (09:04)
[2018-01-09] MEDS: DONEPEZIL 10 MG TABLET PO SCH (09:04)
[2018-01-09] MEDS: FINASTERIDE 5 MG TABLET PO SCH (09:04)
[2018-01-09] MEDS: MAGNESIUM OXIDE 400 MG TABLET PO SCH (09:04)
[2018-01-09] MEDS: MUPIROCIN 2% OINT 22 GM TUBE TOP SCH ×2 (09:04→20:39)
[2018-01-09] MEDS ORDERED: SODIUM CHLORIDE 0.9% 500 ML IV ONE (09:53)
[2018-01-09] MEDS ORDERED: VANCOMYCIN INJ 1,250 MG in SODIUM CHLORIDE 0.9% 250 ML IV ONE (11:00)
[2018-01-09] MEDS ORDERED: SODIUM POLYSTYRENE SULFATE 15 GM/60 ML BOTTLE PO SCH (11:30)
[2018-01-09] MEDS: POLYETHYLENE GLYCOL POWDER 17 GM PACK PO SCH (14:39)
[2018-01-09 15:03] LABS: Calcium 7.9 MG/DL (8.5-10.1); Osmolality,Calculated 320.8 MOS/KG (273-304); Potassium 5.9 MMOL/L (3.5-5.1)
[2018-01-09] MEDS: MORPHINE 2 MG/1 ML SYRINGE IV PRN ×2 (15:55→20:52)
[2018-01-09] MEDS: LEVOFLOXACIN INJ 500 MG in PREMIX 1 EACH IV SCH (15:56)
[2018-01-09] MEDS: ENOXAPARIN 30 MG/0.3 ML SYRINGE SUBCUT SCH (20:37)
[2018-01-10] MEDS: MORPHINE 2 MG/1 ML SYRINGE IV PRN ×2 (00:30→05:24)
[2018-01-10] MEDS: methylPREDNISolone SOD SUC 40 MG/1 ML VIAL IV SCH ×3 (05:24→15:47)
[2018-01-10 06:16] LABS: Basophils % 0.1 % (0.0-0.8); Hematocrit 33.3 VOL% (42.0-52.0); Hemoglobin 10.3 GM/DL (14.0-18.0); Immature Granulocytes % 2.3 %; Immature Granulocytes Absolute 0.35 #; Lymphocytes # 0.9 10*3/uL (1.4-4.0); Lymphocytes % 6.1 % (21.2-54.2); Mean Corpuscular HGB Conc 30.9 GM/DL (32-36); Mean Corpuscular Hemoglobin 31 PG (27-34); Mean Platelet Volume 11.7 FL (9.6-12.0); Monocytes # 0.3 10*3/uL (0.11-0.8); Monocytes % 2.2 % (1.7-12.7); NRBC # 0.33 10*3/uL; Neutrophils # 13.7 10*3/uL (1.4-7.4); Neutrophils % 89.3 % (38.7-73.9); Platelet Count 132 T/CUMM (130-400); Red Blood Count 3.33 MC/CUMM (3.8-5.5); Red Cell Distribution Width 15.1 % (9.3-17.3); White Blood Count 15.3 T/CUMM (4-12)
[2018-01-10 06:43] LABS: Calcium 8.5 MG/DL (8.5-10.1); Osmolality,Calculated 328.6 MOS/KG (273-304)
[2018-01-10 07:00] LABS: Potassium 6.5 MMOL/L (3.5-5.1)
[2018-01-10] MEDS: ARFORMOTEROL 15 MCG/2 ML NEB RESP TX SCH (08:01)
[2018-01-10] MEDS: DONEPEZIL 10 MG TABLET PO SCH (08:22)
[2018-01-10] MEDS: LORATADINE 10 MG TABLET PO SCH (08:22)
[2018-01-10] MEDS: MUPIROCIN 2% OINT 22 GM TUBE TOP SCH (08:22)
[2018-01-10] MEDS: TAMSULOSIN 0.4 MG CAPSULE PO SCH (08:22)
[2018-01-10] MEDS: ASPIRIN 325 MG TABLET PO SCH (08:22)
[2018-01-10] MEDS: MEMANTINE 10 MG TABLET PO SCH (08:22)
[2018-01-10] MEDS: MAGNESIUM OXIDE 400 MG TABLET PO SCH (08:22)
[2018-01-10] MEDS: FINASTERIDE 5 MG TABLET PO SCH (08:23)
[2018-01-10] MEDS: ATENOLOL 50 MG TABLET PO SCH (08:23)
[2018-01-10] MEDS: ALLOPURINOL 100 MG TABLET PO SCH (08:23)
[2018-01-10] MEDS: FLUTICASONE 50 MCG NASAL SPRAY 16 GM BOTTLE BOTH NARES SCH (08:23)
[2018-01-10] MEDS: VORICONAZOLE 200 MG TABLET PO SCH (08:23)
[2018-01-10] MEDS ORDERED: TESTOSTERONE CYP IM SCH (09:00)
[2018-01-10] MEDS ORDERED: INSULIN REGULAR 100 UNIT/ML IV ONE (10:17)
[2018-01-10] MEDS ORDERED: CALCIUM GLUCONATE 1,000 MG in SODIUM CHLORIDE 0.9% 100 ML IV ONE (10:30)
[2018-01-10] MEDS ORDERED: GLUCAGON 1 MG VIAL IV ONE (11:05)
[2018-01-10] MEDS ORDERED: SODIUM BICARB INJ 50 MEQ in DEXTROSE 5% 950 ML IV SCH (12:00)
[2018-01-10] MEDS: POLYETHYLENE GLYCOL POWDER 17 GM PACK PO SCH (12:15)
[2018-01-10] MEDS: LEVOFLOXACIN INJ 500 MG in PREMIX 1 EACH IV SCH (15:47)
[2018-01-10 17:01] VITALS: BP 120/60
== END 2018-01-10 16:50 | disposition expired | DRG 193 ==
LOC: EDUNIT# → EDBD → N.ED 12:59 → N.EDINP 15:19 → SUATTDRO 15:19 → N.EDINP 16:09 → N.CC 16:09
PROVIDERS: ADMIT Internal Medicine; ATTEND Internal Medicine